=== PATIENT | male | born 1965 | race Caucasian/White ===

== ENCOUNTER 2018-11-10 13:58 | Inpatient (IN) | payer MEDICAID ==
[~2018-11-10] VITALS: Ht 185.4 cm; Wt 111.1 kg
[2018-11-10 14:10] VITALS: BP_SYST 136
[2018-11-10] MEDS ORDERED: NACL 0.9% 1,000 ML IV ONE ×2 (14:15→16:15)
[2018-11-10 14:55] LABS: HEMATOCRIT 53.1 % (36-54); HEMOGLOBIN 18.5 g/dL (14.0-18.0); MEAN CORPUSCULAR HEMOGLOBIN 33 pg (27-31); MEAN CORPUSCULAR HGB CONC 35 % (32-36); MEAN CORPUSCULAR VOLUME 93 fL (79.0-98.0); NEUTROPHILS % (AUTO) 80.2 % (40.0-70.0); PLATELET COUNT (AUTO) 313 K/uL (130-430); RED BLOOD CELL COUNT(AUTO) 5.69 MIL/uL (4.2-6.2); RED CELL DISTRIBUTION WIDTH 13.1 % (9.0-15.0)
[2018-11-10 14:56] LABS: BASOPHILS % (AUTO) 0.2 % (0.0-2.0); EOSINOPHILS % (AUTO) 0.1 % (0.0-4.0); LYMPHOCYTES # (AUTO) 1.1 K/uL (1.0-5.5); LYMPHOCYTES % (AUTO) 15.4 % (20.5-51.5); MONOCYTES # (AUTO) 0.3 K/uL (0.0-1.0); MONOCYTES % (AUTO) 4.1 % (1.7-9.3); NEUTROPHILS # (AUTO) 5.6 K/uL (1.8-7.7)
[2018-11-10] MEDS ORDERED: HALOPERIDOL LACTATE 5 MG/ML VIAL IVP ONE (15:00)
[2018-11-10] MEDS ORDERED: DIPHENHYDRAMINE INJ 50 MG/ML VIAL IM ONE (15:15)
[2018-11-10] MEDS ORDERED: LORazepam 2 MG/ML VIAL IM ONE (15:15)
[2018-11-10] MEDS ORDERED: LORazepam 2 MG/ML VIAL (FOR ER USE) ONE (15:16)
[2018-11-10 15:26] LABS: BARBITURATE, URINE NEGATIVE (NEG <=200); BENZODIAZEPINE, URINE NEGATIVE (NEG <=150); CANNABINOID, URINE NEGATIVE (NEG <=50); COCAINE, URINE NEGATIVE (NEG <=150); METHAMPHETAMINES SCREEN,URINE NEGATIVE (NEG <=500); OPIATE, URINE NEGATIVE (NEG <=100); PHENCYCLIDINE SCREEN,URINE NEGATIVE (NEG <=25); UR TRICYCLIC ANTIDEPRESSANTS NEGATIVE (NEG <=300); URINE AMPHETAMINE NEGATIVE (NEG <=500); URINE METHADONE NEGATIVE (NEG <=200); URINE OXYCODONE SCREEN NEGATIVE (NEG <=100); URINE PROPOXYPHENE SCREEN NEGATIVE (NEG <=300)
[2018-11-10 15:47] LABS: ANION GAP 10 (5-15); CALCIUM 8.5 mg/dL (8.4-11.0); CHLORIDE 102 mmol/L (98-107); CREATININE 1.08 mg/dL (0.55-1.30); GFR AFRICAN AMERICAN 92 mL/min (>90); GLUCOSE 98 mg/dL (70-99); POTASSIUM 3.7 mmol/L (3.5-5.1); SODIUM SERUM 143 mmol/L (136-145); UREA NITROGEN, BLOOD 17 mg/dL (8-21)
[2018-11-10 15:55] LABS: TOTAL BILIRUBIN 0.4 mg/dL (0.0-1.0)
[2018-11-10 15:56] LABS: ACETAMINOPHEN < 1 ug/mL (1-30); ALANINE AMINOTRANSFERASE 24 U/L (12-78); ALBUMIN 4.2 g/dL (3.4-4.8); ASPARTATE AMINOTRANSFERASE 21 U/L (10-37)
[2018-11-10 16:10] LABS: ALCOHOL, BLOOD 407 mg/dL (<10)
[2018-11-10 21:27] VITALS: BP_SYST 110
[2018-11-10] MEDS: D5NS 1,000 ML IV SCH (21:51)
[2018-11-10] MEDS: LORazepam 2 MG/ML VIAL IVP PRN (22:00)
[2018-11-11 00:24] VITALS: BP_SYST 122
[2018-11-11] MEDS: LORazepam 2 MG/ML VIAL IVP PRN ×4 (02:02→20:26)
[2018-11-11 05:08] VITALS: BP_SYST 108
[2018-11-11 07:43] VITALS: BP_SYST 127
[2018-11-11] MEDS ORDERED: BANANA BAG 1 EA, FOLIC ACID 1 MG, THIAMINE HCL 100 MG, MAGNESIUM SULFATE 1 GM, MVI 10 M... IV SCH ×5 (08:00)
[2018-11-11] MEDS: D5NS 1,000 ML IV SCH ×2 (12:08→18:00)
[2018-11-11 14:25] VITALS: BP_SYST 131
[2018-11-11 16:15] VITALS: BP_SYST 149
[2018-11-11 19:54] VITALS: BP_SYST 121
[2018-11-12 00:56] VITALS: BP_SYST 129
[2018-11-12] MEDS: D5NS 1,000 ML IV SCH (04:51)
== END 2018-11-12 06:47 | disposition left against medical advice (07) | DRG 770 ==
LOC: SED 13:58 → SMU 19:19
PROVIDERS: ADMIT Internal Medicine Hospice and Palliative Medicine; ATTEND Internal Medicine Hospice and Palliative Medicine
DX: F10.129 Alcohol abuse with intoxication, unspecified (principal); R45.851 Suicidal ideations; Z53.21 Procedure and treatment not carried out due to patient leaving prior to being seen by health care provider
CPT/HCPCS: 36415; 80053; 80307; 85025; 93005; 96361; 96372; 96374; 96375; 99285; G0480; G0481; G0482; J1200; J1630; J2060; J3411; J3475; J3490; J7030; J7042

== ENCOUNTER 2019-04-14 16:55 | Emergency (ER) | payer MEDICAID ==
[~2019-04-14] VITALS: Ht 185.4 cm; Wt 117.9 kg
[2019-04-14 17:10] VITALS: BP_SYST 163
--- NOTE | 2019-04-14 17:10 | NUR ---
ER PA Llaa at bedside examining patient.
--- NOTE | 2019-04-14 17:10 | NUR ---
Patient to ER bed 05 to gown for evaluation. Side rails up. Report given to Hawa.
--- NOTE | 2019-04-14 17:18 | NUR ---
Report given to Daxa JOHNSON
[2019-04-14] MEDS ORDERED: cefTRIAXone 1 GM VIAL IM ONE (17:30)
[2019-04-14] MEDS ORDERED: DIPH-TET-PERTUS Vaccine 0.5 ML VIAL (ADACEL) I.M. ONE (17:30)
[2019-04-14] MEDS ORDERED: LIDOCAINE 1%, 20 ML MDV 20 ML ONE (17:39)
[2019-04-14 17:55] VITALS: BP_SYST 142
== END 2019-04-14 17:55 | disposition home or self-care (01) ==
LOC: SED 16:55
DX: L03.116 Cellulitis of left lower limb (principal); I10 Essential (primary) hypertension
CPT/HCPCS: 90471; 90715; 96372; 99283; J0696; J2001

== ENCOUNTER 2019-05-18 14:45 | Emergency (ER) | payer MEDICAID ==
[~2019-05-18] VITALS: Ht 188 cm; Wt 122.5 kg
[2019-05-18 15:03] VITALS: BP_SYST 156
--- NOTE | 2019-05-18 15:45 | NUR ---
Patient to ER bed 8 to gown for evaluation. Side rails up. Report given to Cuauhtemoc JOHNSON.
--- NOTE | 2019-05-18 16:00 | NUR ---
Pt c/o sorethroat burning sensation x 1 week.Pt denies difficulty,swallowing or speaking.t h/o GERD and HTN. Pt's thoat swabbed for Strep.
--- NOTE | 2019-05-18 16:02 | NUR ---
LISS Turcios at bedside examining patient.
[2019-05-18] MEDS ORDERED: MAG HYDROX/AL HYDROX/SIMETH 30 ML, DICYCLOMINE HCL 20 MG, LIDOCAINE VISCOUS 2% 15ML (PO... PO ONE ×3 (16:15)
[2019-05-18 16:36] VITALS: BP_SYST 156
--- NOTE | 2019-05-18 16:39 | NUR ---
Patient given written and verbal discharge instructions and verbalizes understanding. ER MD discussed with patient the results and treatment provided. Patient in stable condition. ID arm band removed. Rx of [Omeprzole ] given. Patient educated on pain management and to follow up with PMD. Pain Scale [2/10 tolerable for pt]. Opportunity for questions provided and answered. Medication side effect fact sheet provided.
== END 2019-05-18 16:36 | disposition home or self-care (01) ==
LOC: SED 14:45
DX: K21.9 Gastro-esophageal reflux disease without esophagitis (principal); I10 Essential (primary) hypertension
CPT/HCPCS: 86403; 87081; 99283; J2001; 36415

== ENCOUNTER 2020-11-28 11:07 | Emergency (ER) | payer MEDICAID ==
[~2020-11-28] VITALS: Ht 185.4 cm; Wt 95.3 kg
[2020-11-28 11:12] VITALS: BP_SYST 161
[2020-11-28] MEDS ORDERED: BACITRACIN 1 GM OINT TP ONE (11:58)
[2020-11-28 12:16] VITALS: BP_SYST 161
== END 2020-11-28 12:16 | disposition home or self-care (01) ==
LOC: SED 11:07
DX: S61.411A Laceration without foreign body of right hand, initial encounter (principal); I10 Essential (primary) hypertension; W45.8XXA Other foreign body or object entering through skin, initial encounter; Y93.89 Activity, other specified; Y92.89 Other specified places as the place of occurrence of the external cause; Y99.8 Other external cause status
CPT/HCPCS: 99282

== ENCOUNTER 2020-12-21 16:59 | Emergency (ER) | payer MEDICAID ==
[~2020-12-21] VITALS: Ht 188 cm; Wt 127.0 kg
[2020-12-21 17:10] VITALS: BP_SYST 140
[2020-12-21 18:31] LABS: BASOPHILS # (AUTO) 0.1 K/uL (0.0-0.2); EOSINOPHILS # (AUTO) 0.2 K/uL (0.0-0.4); EOSINOPHILS % (AUTO) 1.6 % (0.0-4.0); HEMATOCRIT 38.4 % (36-54); HEMOGLOBIN 13.3 g/dL (14.0-18.0); LYMPHOCYTES # (AUTO) 1.2 K/uL (1.0-5.5); LYMPHOCYTES % (AUTO) 12.6 % (20.5-51.5); MEAN CORPUSCULAR HEMOGLOBIN 33 pg (27-31); MEAN CORPUSCULAR HGB CONC 35 % (32-36); MEAN CORPUSCULAR VOLUME 94 fL (79.0-98.0); MONOCYTES # (AUTO) 0.9 K/uL (0.0-1.0); MONOCYTES % (AUTO) 9.8 % (1.7-9.3); NEUTROPHILS # (AUTO) 7.1 K/uL (1.8-7.7); PLATELET COUNT (AUTO) 328 K/uL (130-430); RED BLOOD CELL COUNT(AUTO) 4.07 MIL/uL (4.2-6.2); RED CELL DISTRIBUTION WIDTH 13.4 % (9.0-15.0); WHITE BLOOD COUNT (AUTO) 9.5 K/uL (4.8-10.8)
[2020-12-21] MEDS: cefTRIAXone 1 GM IVPB PREMIX 50 ML IV ONE (18:34)
[2020-12-21] MEDS: NACL 0.9% 1,000 ML IV ONE (18:34)
[2020-12-21 19:02] VITALS: BP_SYST 140
== END 2020-12-21 19:03 | disposition home or self-care (01) ==
LOC: SED 16:59
DX: R23.4 Changes in skin texture (principal)
CPT/HCPCS: 36415; 85025; 96365; 99284

== ENCOUNTER 2022-03-22 15:27 | Emergency (ER) | payer MEDICAID ==
[~2022-03-22] VITALS: Ht 188 cm; Wt 131.5 kg
[2022-03-22 15:40] VITALS: BP_SYST 160
[2022-03-22] MEDS ORDERED: AUG875 PO (20:01)
[2022-03-22 20:11] VITALS: BP_SYST 160
== END 2022-03-22 20:14 | disposition home or self-care (01) ==
LOC: SED 15:27
DX: K04.7 Periapical abscess without sinus (principal)
CPT/HCPCS: 99283

== ENCOUNTER 2022-12-21 13:54 | Emergency (ER) | payer MEDICAID ==
[~2022-12-21] VITALS: Ht 188 cm; Wt 99.8 kg
[~2022-12-21 13:54] MED LIST: AUG875 PO
[2022-12-21 14:20] VITALS: BP_SYST 144
--- NOTE | 2022-12-21 14:40 | NUR ---
ER DR. YU EXAMINING PT IN TRIAGE
--- NOTE | 2022-12-21 14:46 | NUR ---
PT ELOPED FROM ER
== END 2022-12-21 17:20 | disposition left against medical advice (07) ==
LOC: SED 13:54
DX: M25.572 Pain in left ankle and joints of left foot (principal); I10 Essential (primary) hypertension; Z79.899 Other long term (current) drug therapy
CPT/HCPCS: 99281

== ENCOUNTER 2023-01-01 13:42 | Emergency (ER) | payer MEDICAID ==
[~2023-01-01] VITALS: Ht 185.4 cm; Wt 127.0 kg
--- NOTE | 2023-01-01 14:03 | NUR ---
Patient to ER bed 3 to gown for evaluation. Side rails up. Report given to ZAKIA JOHNSON.
[2023-01-01 14:04] VITALS: BP_SYST 152
--- NOTE | 2023-01-01 14:04 | NUR ---
PT BIB SELF AWAKE AND ALERT AOX4, NO SOB OR DISTRESS. PT C/O PAIN TO L ANKLE. 5/10 PAIN. PT STATED HE ROLLED HIS ANKLE 2 WEEKS AGO WHILE HIKING. PT VISITED ER LAST WEEK BUT THE WAIT WAS TOO LONG SO HE DIDNT CHECK IN.
--- NOTE | 2023-01-01 14:06 | NUR ---
MD DR SANCHEZ AT BEDSIDE
--- NOTE | 2023-01-01 15:15 | NUR ---
Patient given written and verbal discharge instructions and verbalizes understanding. ER MD discussed with patient the results and treatment provided. Patient in stable condition. ID arm band removed. NO Rx of given. Patient educated on pain management and to follow up with PMD. Pain Scale 0. Opportunity for questions provided and answered. Medication side effect fact sheet provided.
== END 2023-01-01 15:15 | disposition home or self-care (01) ==
LOC: SED 13:42
DX: S93.602A Unspecified sprain of left foot, initial encounter (principal); I10 Essential (primary) hypertension; Z79.899 Other long term (current) drug therapy; X50.1XXA Overexertion from prolonged static or awkward postures, initial encounter; Y93.89 Activity, other specified; Y92.89 Other specified places as the place of occurrence of the external cause; Y99.8 Other external cause status
CPT/HCPCS: 99283